=== PATIENT | male | born 1975 | race Two or more races ===

== ENCOUNTER → 2017-03-25 | Outpatient (CLI) | payer OTHER ==
[2015-11-01 17:13] VITALS: BP 141/100
[~2017-03-25] MED LIST: ALPR1TAB2 PO; METH10TA2 PO; OXYC30TA64 PO
--- NOTE | 2017-03-25 15:55 | RAD ---
Right shoulder, 3 views, 03/25/2017: History: Shoulder pain There are moderate degenerative changes at the left glenohumeral articulation with spurring and subchondral sclerosis. A calcification along the inferior aspect of the humeral head is probably a loose body in the joint. There are mild degenerative changes at the AC joint. No acute fracture or dislocation is identified. IMPRESSION: 1. Moderate degenerative change. 2. No acute bony abnormality is detected.
== END | disposition home or self-care (01) ==
LOC: RAD 15:25
PROVIDERS: ATTEND General Practice
DX: M19.011 Primary osteoarthritis, right shoulder (principal); M25.811 Other specified joint disorders, right shoulder; F17.200 Nicotine dependence, unspecified, uncomplicated
CPT/HCPCS: 73030

== ENCOUNTER 2019-05-20 13:14 | Emergency (ER) | payer MEDICAID, OTHER ==
[~2019-05-20] VITALS: Ht 162.6 cm; Wt 71.3 kg
[2019-05-20] MEDS ORDERED: LIDOCAINE 1% Multi-Dose 20 ML VIAL. ONE (13:26)
[2019-05-20 13:28] VITALS: BP 127/74
[2019-05-20] MEDS ORDERED: AMOX500T PO (13:37)
[2019-05-20] MEDS ORDERED: DICL50TA4 PO (13:37)
--- NOTE | 2019-05-20 13:37 | PHYS DOC ---
Past History Past Medical History: Other Additional Past Medical Histor: chronic shoulder pain Past Surgical History: Other Smoking: Cigarettes Alcohol Use: None Drug Use: None Adult General Chief Complaint Chief Complaint: DENTAL PROBLEM HPI HPI Patient is a 43-year-old male who presents to the emergency department for evaluation. He states for the past 2 days, he has had pain at the right upper posterior jaw area, where he has a decayed posterior molar, a missing middle molar, and some decay of his anterior molar. He also has a history of chronic pain, he has been getting methadone and oxycodone from Dr. Bui, who reportedly left the area. The patient did get a prescription for Percocet 2 days ago, verified from [facility], but states it has not been helping his pain. He denies any fevers, chills, cough, nausea, vomiting. There are no alleviating or exacerbating factors to his symptoms. Review of Systems Review of Systems Constitutional: Denies fever or chills [] Eyes: Denies change in visual acuity, redness, or eye pain [] HENT: Denies nasal congestion or sore throat [] Respiratory: Denies cough or shortness of breath [] Cardiovascular: No additional information not addressed in HPI [] GI: Denies abdominal pain, nausea, vomiting, bloody stools or diarrhea [] : Denies dysuria or hematuria [] Musculoskeletal: Denies back pain or joint pain [] Integument: Denies rash or skin lesions [] Neurologic: Denies headache, focal weakness or sensory changes [] Current Medications Current Medications Current Medications Medications (Trade) Dose Ordered Sig/Rodrigo Start Time Stop Time Status Last Admin Dose Admin Lidocaine HCl 20 ml STK-MED ONCE 05/20/19 13:26 05/20/19 13:26 DC Allergies Allergies Allergies Coded Allergies Type Severity Reaction Last Updated Verified No Known Drug Allergies 11/01/15 No Physical Exam Physical Exam PHYSICAL EXAM: CONSTITUTIONAL: Well developed, well nourished HEAD: normocephalic, atraumatic EENT: PERRL, EOMI. Conjunctivae normal color, sclerae non-icteric; moist mucous membranes. There is mild diffuse dental decay, with numerous missing teeth, numerous absent molars. There is a large cavity on the anterior aspect of the right upper posterior molar, the right second molar is absent, the right upper anterior molar has some decay. There is no gingival edema or exam evidence of abscess. There is no focal dental tenderness to palpation but the area is diffusely tender. NECK: Supple, non-tender; no meningismus. LUNGS: Lungs CTA, breathing even and unlabored. Normal air movement. HEART: Regular rate and rhythm, no murmur CHEST: No deformity; non-tender ABDOMEN: The abdomen is soft, and non-tender, no masses or bruits. EXTREM: Normal ROM; no deformity, no calf tenderness. Normal pulses palpable in all extremities. There is no pedal edema. SKIN: No rash; no diaphoresis NEURO: Alert; normal speech and cognition; CN's grossly intact; strength grossly intact without focal deficit. BACK: No CVA TTP. EKG EKG [] Radiology/Procedures Radiology/Procedures [] Course & Med Decision Making Course & Med Decision Making The patient was insistent on medication for pain. He agreed to a dental block, a posterior superior alveolar block was performed using 3 mL of 1% lidocaine. Mild improvement was reported. I stressed importance of dental follow-up, and return precautions in detail. Dragon Disclaimer Dragon Disclaimer This electronic medical record was generated, in whole or in part, using a voice recognition dictation system. Departure Departure: Impression: Primary Impression: Pain, dental Additional Impressions: Dental caries Chronic pain Disposition: 01 HOME, SELF-CARE Condition: STABLE Referrals: PCPDAYNE (PCP) Patient Instructions: Dental Caries, Dental Pain Additional Instructions: Use the provided resources to help establish care with a dentist, as well as a pain management physician. Return to medical care for any new or worsening symptoms, development of increasing pain, fevers, chills, difficulty breathing, or any other new or concerning symptoms. Scripts Diclofenac Sodium (DICLOFENAC SODIUM) 50 Mg Tablet. 1 TAB PO BID for pain, #20 TAB 1 Refill Prov: ALEKSANDAR BARRAGAN MD 05/20/19 Amoxicillin (AMOXICILLIN) 500 Mg Tablet 1 TAB PO TID for -, #30 TAB Prov: ALEKSANDAR BARRAGAN MD 05/20/19 Problem Qualifiers ALEKSANDAR BARRAGAN MD May 20, 2019 13:37
== END 2019-05-20 13:55 | disposition home or self-care (01) ==
LOC: ER 13:19
DX: K02.9 Dental caries, unspecified (principal); G89.29 Other chronic pain; F17.210 Nicotine dependence, cigarettes, uncomplicated
CPT/HCPCS: 64400; 99284

== ENCOUNTER 2019-09-12 19:03 | Emergency (ER) | payer SELFPAY ==
[~2019-09-12] VITALS: Ht 162.6 cm; Wt 68.0 kg
[~2019-09-12 19:03] MED LIST changes: +AMOX500T PO; +DICL50TA4 PO
--- NOTE | 2019-09-12 19:08 | PHYS DOC ---
Past History Past Medical History: Other Additional Past Medical Histor: chronic shoulder pain Past Surgical History: Other Smoking: Cigarettes Alcohol Use: None Drug Use: None General Adult EDM: Chief Complaint: HAND PROBLEM HPI: HPI: ".. I got my hand hurt when a car door blew open and hit my Rt. hand 3 days ago... and it is still swollen, red and full of pain..." Patient is a 44 year old male who presents with above hx and complaints of crush injury to Rt. hand. Right hand is swollen primarily in digits 2 & 3 and meta carpal and phalangeal area. Limited range of motion due to pain and swelling. Mild pain in wrist. Distal capillary refill and sensation is equal to left hand. Patient is right-hand dominant. Denies recent travel outside the [place] area. No specific ill contacts. No history immunosuppression. Patient had been working at [employer] until late off with COVID precautions and closing of [employer]. Pt. has not taken any tylenol or ibuprofen for pain. Has not used any ice packs. Pt. does smoke. Review of Systems: Review of Systems: Constitutional: Denies fever or chills Eyes: Denies change in visual acuity HENT: Denies nasal congestion or sore throat Respiratory: Denies cough or shortness of breath Cardiovascular: Denies chest pain or edema GI: Denies abdominal pain, nausea, vomiting, bloody stools or diarrhea : Denies dysuria Musculoskeletal: Complaints of Rt. hand injury Integument: Denies rash Neurologic: Denies headache, focal weakness or sensory changes Endocrine: Denies polyuria or polydipsia Lymphatic: Denies swollen glands Psychiatric: Denies depression or anxiety Heart Score: Risk Factors: Risk Factors: DM, Current or recent (<one month) smoker, HTN, HLP, family history of CAD, obesity. Risk Scores: Score 0 - 3: 2.5% MACE over next 6 weeks - Discharge Home Score 4 - 6: 20.3% MACE over next 6 weeks - Admit for Clinical Observation Score 7 - 10: 72.7% MACE over next 6 weeks - Early Invasive Strategies Family History: Family History: Noncontributory to presentation Current Medications: Current Meds: See nursing for home meds Allergies: Allergies: No known Allergies Coded Allergies Type Severity Reaction Last Updated Verified No Known Drug Allergies 11/01/15 No Physical Exam: PE: Constitutional:moderate acute distress, non-toxic appearance. [] HENT: Normocephalic, atraumatic, bilateral external ears normal, oropharynx moist, no oral exudates, nose normal. [] Eyes: PERRLA, EOMI, conjunctiva normal, no discharge. [] Neck: Normal range of motion, no tenderness, supple, no stridor. [] Cardiovascular:Heart rate regular rhythm, no murmur [] Lungs & Thorax: Bilateral breath sounds equal at apex with few scattered wheezes on auscultation [] Abdomen: Bowel sounds normal, soft, no tenderness, no masses, no pulsatile masses. [] Skin: Warm, dry, no erythema, no rash. [] Back: No tenderness, no CVA tenderness. [] Extremities: No tenderness, no cyanosis, no clubbing, ROM intact, no edema. [] Except findings of injury in right hand. Neurologic: Alert and oriented X 3, normal motor function, normal sensory function, no focal deficits noted. [] Psychologic: Affect anxious judgement normal, mood normal. [] EKG: EKG: [] Radiology/Procedures: Radiology/Procedures: [][place] [address] IMAGING REPORT Signed PATIENT: CHANDNI ALDRIDGE: [id number] : 1975 LOCATION: ER AGE: 44 SEX: M EXAM STATUS: REG ER ORD. PHYSICIAN: RADHA BOWLES MD REASON: car door injury PROCEDURE: HAND RIGHT 3V EXAM: Right hand and wrist, 3 views. HISTORY: Blunt trauma. COMPARISON: None. FINDINGS: 3 views of the right hand and wrist are obtained. There is a tiny ossicle adjacent to the ulnar styloid, possibly due to the sequela of prior injury. There is suspected slight chondrocalcinosis involving the triangle fibrocartilage complex. There are vascular calcifications. There is slight lucency along the radial styloid which is likely projectional. No convincing fracture is seen. IMPRESSION: No convincing acute osseous finding. Electronically signed by: Suraj Rios MD (09/12/2019 7:32 PM) [facility] DICTATED AND SIGNED BY: SURAJ RIOS MD DATE: 09/12/191931 CC: RADHA BOWLES MD; PCP,NO ~ Course & Med Decision Making: Course & Med Decision Making Pertinent Labs and Imaging studies reviewed. (See chart for details) Ice, elevation, Catracho wrap, rest, and take Tylenol and ibuprofen for pain. Follow-up primary care. Return if any concerns. Distal neurovascular intact after application of Catracho wrap.. Encourage pt. to stop smoking. Note pt. requesting narcotic pain medication. Impression: 1. Crush/contusion injury right hand 2. History of tobacco use [] Dragon Disclaimer: Dragon Disclaimer: This electronic medical record was generated, in whole or in part, using a voice recognition dictation system. Departure Departure: Disposition: 01 HOME/RESIDENCE PRIOR TO ADM Condition: STABLE Referrals: PCP,NO (PCP) Dragon Disclaimer This chart was dictated in whole or in part using Voice Recognition software in a busy, high-work load, and often noisy Emergency Department environment. It may contain unintended and wholly unrecognized errors or omissions. Dragon Disclaimer This chart was dictated in whole or in part using Voice Recognition software in a busy, high-work load, and often noisy Emergency Department environment. It may contain unintended and wholly unrecognized errors or omissions. Dragon Disclaimer This chart was dictated in whole or in part using Voice Recognition software in a busy, high-work load, and often noisy Emergency Department environment. It may contain unintended and wholly unrecognized errors or omissions. RADHA BOWLES MD September 12, 2019 19:08
[2019-09-12] MEDS ORDERED: IBUPROFEN 600 MG TABLET. PO ONE ×2 (19:34→19:45)
--- NOTE | 2019-09-12 19:35 | RAD ---
EXAM: Right hand and wrist, 3 views. HISTORY: Blunt trauma. COMPARISON: None. FINDINGS: 3 views of the right hand and wrist are obtained. There is a tiny ossicle adjacent to the ulnar styloid, possibly due to the sequela of prior injury. There is suspected slight chondrocalcinosis involving the triangle fibrocartilage complex. There are vascular calcifications. There is slight lucency along the radial styloid which is likely projectional. No convincing fracture is seen. IMPRESSION: No convincing acute osseous finding. Electronically signed by: Gabi Rios MD (09/12/2019 7:32 PM) [facility]
== END 2019-09-12 19:51 | disposition home or self-care (01) ==
LOC: ER 19:03
DX: S67.21XA Crushing injury of right hand, initial encounter (principal); G89.29 Other chronic pain; F17.210 Nicotine dependence, cigarettes, uncomplicated; W23.0XXA Caught, crushed, jammed, or pinched between moving objects, initial encounter; Y93.89 Activity, other specified; Y92.89 Other specified places as the place of occurrence of the external cause; Y99.8 Other external cause status
CPT/HCPCS: 73110; 73130; 99284

== ENCOUNTER 2019-10-27 19:58 | Emergency (ER) | payer MEDICAID, OTHER ==
[~2019-10-27] VITALS: Ht 162.6 cm; Wt 55.0 kg
[2019-10-27 19:58] VITALS: BP 134/77
--- NOTE | 2019-10-27 20:35 | PHYS DOC ---
Past History Past Medical History: Other Additional Past Medical Histor: chronic shoulder pain Past Surgical History: Other Smoking: Cigarettes Alcohol Use: None Drug Use: None General Adult EDM: Chief Complaint: ANXIETY/PANIC ATTACK HPI: HPI: 44-year-old male presents with "identity crisis". He has been feeling today like he is not himself. He has not felt like he is in his body. He had a copy of his ID made so that he can look at it and recognize who he was. Patient states he is never had feelings like this before. He was feeling fine yesterday. He does not understand what is going on. He denies any previous psychiatric history. He is on no medications. He has had a lot of stress recently. No trauma or injuries lately. His told the nurse that he told her he felt like his body had been swapped out for someone else's. Patient denies visual or audible hallucinations. He denies suicidal or homicidal ideation. Denies fever or chills. Review of Systems: Review of Systems: Constitutional: Denies fever or chills Eyes: Denies change in visual acuity HENT: Denies nasal congestion or sore throat Respiratory: Denies cough or shortness of breath Cardiovascular: Denies chest pain or edema GI: Denies abdominal pain, nausea, vomiting, bloody stools or diarrhea : Denies dysuria Musculoskeletal: Denies back pain or joint pain Integument: Denies rash Neurologic: Denies headache, focal weakness or sensory changes Endocrine: Denies polyuria or polydipsia Lymphatic: Denies swollen glands Psychiatric: Anxiety, out of body experience Heart Score: Risk Factors: Risk Factors: DM, Current or recent (<one month) smoker, HTN, HLP, family history of CAD, obesity. Risk Scores: Score 0 - 3: 2.5% MACE over next 6 weeks - Discharge Home Score 4 - 6: 20.3% MACE over next 6 weeks - Admit for Clinical Observation Score 7 - 10: 72.7% MACE over next 6 weeks - Early Invasive Strategies Allergies: Allergies: Allergies Coded Allergies Type Severity Reaction Last Updated Verified No Known Drug Allergies 11/01/15 No Physical Exam: PE: Constitutional: Well developed, well nourished, no acute distress, non-toxic appearance. [] HENT: Normocephalic, atraumatic, bilateral external ears normal, oropharynx moist, no oral exudates, nose normal. [] Eyes: PERRLA, EOMI, conjunctiva normal, no discharge. [] Neck: Normal range of motion, no tenderness, supple, no stridor. [] Cardiovascular: Heart rate regular rhythm, no murmur [] Lungs & Thorax: Bilateral breath sounds clear to auscultation [] Abdomen: Bowel sounds normal, soft, no tenderness, no masses, no pulsatile masses. [] Skin: Warm, dry, no erythema, no rash. [] Back: No tenderness, no CVA tenderness. [] Extremities: No tenderness, no cyanosis, no clubbing, ROM intact, no edema. [] Neurologic: Alert and oriented X 3, normal motor function, normal sensory function, no focal deficits noted. [] Psychologic: Affect normal, judgement normal, mood anxious.. [] Current Patient Data: Vital Signs: Vital Signs Date Time Temp Pulse Resp B/P (MAP) Pulse Ox O2 Delivery O2 Flow Rate FiO2 10/27/19 19:58 97.9 90 16 134/77 (96) 99 EKG: EKG: [] Radiology/Procedures: Radiology/Procedures: [] Course & Med Decision Making: Course & Med Decision Making Pertinent Labs and Imaging studies reviewed. (See chart for details) The patient suddenly walked out of the emergency room while all of the staff was working with other patients. When we realized he was missing, we attempted to find him out the front door but he was already off the property. The patient left with an IV in place. The IV was placed in him prior to the additional history that the gave us that the patient has a history of drug use and recent rehab. He has never been diagnosed with schizophrenia, but has a strong family history of it. The police were notified that the patient left with an IV in place. He has not been located at this time. He left AMA. His labs were remarkable for slightly low potassium at 3.2 and elevated liver enzymes. His urine drug screen was negative. He has a slightly high white count of 13.5. [] Dragon Disclaimer: Dragon Disclaimer: This electronic medical record was generated, in whole or in part, using a voice recognition dictation system. Departure Departure: Impression: Primary Impression: Anxiety reaction Additional Impression: Drug-seeking behavior Disposition: 07 AGAINST MEDICAL ADVICE Condition: GUARDED Referrals: PCP,NO (PCP) Justification of Admission: Justification of Admission: Justification of Admission Dx: N/A LAURI MACHUCA DO Oct 27, 2019 20:35
[2019-10-27 20:37] LABS: BASO # 0.1 x10^3/uL (0.0-0.2); BASO % 1 % (0-3); EOS # 0.2 x10^3/uL (0.0-0.7); EOS % 2 % (0-3); HEMATOCRIT 47.3 % (39.0-53.0); HEMOGLOBIN 16.3 g/dL (13.0-17.5); LYMPH # 2.3 x10^3/uL (1.0-4.8); LYMPH % 17 % (24-48); MEAN CORPUSCULAR HEMOGLOBIN 30 pg (25-35); MEAN CORPUSCULAR HGB CONC 35 g/dL (31-37); MEAN CORPUSCULAR VOLUME 87 fL (79-100); MONO % 8 % (0-9); NEUT # 9.8 x10^3uL (1.8-7.7); NEUT % 73 % (31-73); PLATELET COUNT 364 x10^3/uL (140-400); RED BLOOD COUNT 5.41 x10^6/uL (4.30-5.70); RED CELL DISTRIBUTION WIDTH 13.8 % (11.5-14.5); WHITE BLOOD COUNT 13.5 x10^3/uL (4.0-11.0)
[2019-10-27 21:17] LABS: CALCIUM 8.5 mg/dL (8.5-10.1); GFR 80.4; POTASSIUM 3.2 mmol/L (3.5-5.1)
[2019-10-27 21:21] LABS: AMPHETAMINE/METHAMPHETAMINE NEG (NEG); BARBITURATES NEG (NEG); BENZODIAZEPINES NEG (NEG); CANNABINOIDS NEG (NEG); COCAINE NEG (NEG); METHADONE NEG (NEG); OPIATES NEG (NEG); PHENCYCLIDINE NEG (NEG)
[2019-10-27 21:22] LABS: ALBUMIN 3.3 g/dL (3.4-5.0); TOTAL BILIRUBIN 0.8 mg/dL (0.2-1.0); TOTAL PROTEIN 6.7 g/dL (6.4-8.2)
[2019-10-27 21:36] LABS: BILIRUBIN,URINE NEG (NEG); CLARITY,URINE HAZY; COLOR,URINE AMBER; GLUCOSE,URINE 250 mg/dL (NEG)
[2019-10-27 21:37] LABS: BACTERIA,URINE 0 /HPF (0-FEW); NITRITE,URINE NEG (NEG); RBC,URINE 0 /HPF (0-2); WBC,URINE 0 /HPF (0-4)
== END 2019-10-27 21:06 | disposition left against medical advice (07) ==
LOC: ER 19:58
DX: F41.1 Generalized anxiety disorder (principal); Z76.5 Malingerer [conscious simulation]; G89.29 Other chronic pain; F17.210 Nicotine dependence, cigarettes, uncomplicated
CPT/HCPCS: 36415; 80053; 80307; 81001; 85025; 99283